=== PATIENT | female | born 1975 | race Caucasian/White ===

== ENCOUNTER 2019-09-11 08:42 | Inpatient (IN) | payer OTHER ==
[~2019-09-11] VITALS: Ht 162.6 cm; Wt 74.0 kg
[2019-09-11] MEDS ORDERED: AMITRIPTYLINE H10 MG (08:55)
[2019-09-11] MEDS ORDERED: FLORAVANCE CAP1 EACH (08:55)
[2019-09-11] MEDS ORDERED: [UNRECOGNIZED DRUG - OTHER] (08:55)
[2019-09-11] MEDS ORDERED: LEVOXYL125 MCG (08:55)
== END 2019-09-19 14:07 | disposition home or self-care (01) | DRG 441 ==
LOC: ER 08:42 → SEC-K 17:44 → SURG 21:29 → MEDI 09-18 17:21
PROVIDERS: ADMIT Internal Medicine; ATTEND Internal Medicine
PROC: BW21Y0Z Computerized Tomography (CT Scan) of Abdomen and Pelvis using Other Contrast, Unenhanced and Enhanced (ICD-10-PCS; principal; 2019-09-11)
PROC: BF37ZZZ Magnetic Resonance Imaging (MRI) of Pancreas (ICD-10-PCS; 2019-09-11)
DX: K75.4 Autoimmune hepatitis (principal); K83.1 Obstruction of bile duct; D68.0 Von Willebrand disease; E03.8 Other specified hypothyroidism; R31.0 Gross hematuria

== ENCOUNTER 2020-04-24 09:36 | Outpatient (CLI) | payer OTHER ==
[~2020-04-24 09:36] MED LIST: AMITRIPTYLINE H10 MG; FLORAVANCE CAP1 EACH; LEVOXYL125 MCG; [UNRECOGNIZED DRUG - OTHER]
== END 2020-04-24 09:49 | disposition home or self-care (01) ==
LOC: SONOGRAMA 09:36
PROVIDERS: ATTEND Internal Medicine Endocrinology, Diabetes & Metabolism
DX: E06.3 Autoimmune thyroiditis (principal); E05.00 Thyrotoxicosis with diffuse goiter without thyrotoxic crisis or storm; K75.4 Autoimmune hepatitis

== ENCOUNTER 2020-06-18 11:30 | Inpatient (IN) | payer OTHER ==
[~2020-06-18] VITALS: Ht 152.4 cm; Wt 57.6 kg
[2020-06-18] MEDS ORDERED: PREDNISONE PO (14:54)
[2020-06-18] MEDS ORDERED: IMURAN50 MG PO (14:54)
[2020-06-18] MEDS ORDERED: LEVOXYL100 MCG PO (14:55)
[2020-06-18] MEDS ORDERED: PEPCID AC20 MG PO (14:55)
[2020-06-18] MEDS ORDERED: VITAMIN B 12 IM (14:56)
[2020-06-23] MEDS ORDERED: VITAMIN B-121000 MC4 (09:06)
[2020-06-23] MEDS ORDERED: PREDNISONE50 M1 PO (09:06)
[2020-06-25] MEDS ORDERED: CODE1TAB37 PO (06:57)
[2020-06-25] MEDS ORDERED: NEURONTIN600 MG PO (06:57)
[2020-06-25] MEDS ORDERED: SIMETHICONE125 M1 PO (06:57)
[2020-06-25] MEDS ORDERED: POLY119PG PO (06:57)
== END 2020-06-26 12:20 | disposition home or self-care (01) | DRG 742 ==
LOC: OB/GYN 06-23 05:35 → O/R 06-23 05:35 → OB/GYN 06-23 10:00 → SURG-SUITE 06-23 19:06
PROVIDERS: ADMIT Obstetrics & Gynecology; ATTEND Obstetrics & Gynecology
PROC: 0UB70ZZ Excision of Bilateral Fallopian Tubes, Open Approach (ICD-10-PCS; 2020-06-23)
PROC: 0UT90ZZ Resection of Uterus, Open Approach (ICD-10-PCS; principal; 2020-06-23 10:00)
DX: N72 Inflammatory disease of cervix uteri (principal); D68.0 Von Willebrand disease; D62 Acute posthemorrhagic anemia; N85.8 Other specified noninflammatory disorders of uterus; N83.8 Other noninflammatory disorders of ovary, fallopian tube and broad ligament; K75.4 Autoimmune hepatitis; Z79.52 Long term (current) use of systemic steroids; E03.9 Hypothyroidism, unspecified

== ENCOUNTER 2020-09-27 09:55 | Inpatient (IN) | payer OTHER ==
[~2020-09-27] VITALS: Ht 152.4 cm; Wt 56.7 kg
[~2020-09-27 09:55] MED LIST changes: +CODE1TAB37 PO; +IMURAN50 MG PO; +LEVOXYL100 MCG PO; +NEURONTIN600 MG PO; +PEPCID AC20 MG PO; +POLY119PG PO; +PREDNISONE PO; +PREDNISONE50 M1 PO; +SIMETHICONE125 M1 PO; +VITAMIN B 12 IM; +VITAMIN B-121000 MC4
[2020-09-27] MEDS ORDERED: ORAPRED ODT10 MG PO (10:27)
[2020-09-27] MEDS ORDERED: PEPCID AC20 MG PO (10:27)
== END 2020-10-06 12:39 | disposition home or self-care (01) | DRG 394 ==
LOC: ER 09:55 → SURG 09-28 01:32
PROVIDERS: ADMIT Surgery; ATTEND Surgery
PROC: BU4CZZZ Ultrasonography of Uterus and Ovaries (ICD-10-PCS; principal; 2020-09-27)
PROC: BW2110Z Computerized Tomography (CT Scan) of Abdomen and Pelvis using Low Osmolar Contrast, Unenhanced and Enhanced (ICD-10-PCS; 2020-09-28)
PROC: 02HV33Z Insertion of Infusion Device into Superior Vena Cava, Percutaneous Approach (ICD-10-PCS; 2020-10-01)
PROC: BW2110Z Computerized Tomography (CT Scan) of Abdomen and Pelvis using Low Osmolar Contrast, Unenhanced and Enhanced (ICD-10-PCS; 2020-10-03)
PROC: 02PY33Z Removal of Infusion Device from Great Vessel, Percutaneous Approach (ICD-10-PCS; 2020-10-04)
DX: K66.8 Other specified disorders of peritoneum (principal); D68.0 Von Willebrand disease; E86.0 Dehydration; K75.4 Autoimmune hepatitis; E03.8 Other specified hypothyroidism; Z20.822 Contact with and (suspected) exposure to COVID-19; Z79.52 Long term (current) use of systemic steroids